=== PATIENT | female | born 1960 | race African-American/Black ===

== ENCOUNTER 2018-08-29 07:56 | Emergency (ER) | payer SELFPAY ==
[~2018-08-29] VITALS: Ht 162.6 cm; Wt 60.0 kg
[2018-08-29] MEDS ORDERED: HYDR12.529 PO (08:01)
[2018-08-29] MEDS ORDERED: KETOROLAC 60MG/2ML VIAL IM ONE (08:45)
[2018-08-29] MEDS ORDERED: HYDROCODONE/ACETAMINOPHEN 5/325MG TABLET PO ONE ×2 (08:45→10:00)
[2018-08-29] MEDS ORDERED: LIDOCAINE HCL/PF 1% 10 MG/ML 5ML VIAL IJ ONE (09:15)
[2018-08-29 10:20] VITALS: BP 141/93
== END 2018-08-29 10:26 | disposition home or self-care (01) ==
LOC: ER 08:23
DX: S52.592A Other fractures of lower end of left radius, initial encounter for closed fracture (principal); W01.198A Fall on same level from slipping, tripping and stumbling with subsequent striking against other object, initial encounter; Y93.89 Activity, other specified; Y92.89 Other specified places as the place of occurrence of the external cause; I10 Essential (primary) hypertension
CPT/HCPCS: 25605; 73110; 96372; 99284; J1885; J3490